=== PATIENT | female | born 1955 | race Caucasian/White ===

== ENCOUNTER 2020-04-08 03:49 | Emergency (ER) | payer BC ==
[~2020-04-08] VITALS: Ht 149.9 cm; Wt 68.9 kg
[2020-04-08 03:56] VITALS: Ht 149.9 cm; Wt 68.9 kg
[2020-04-08 05:39] VITALS: BP 134/70
== END 2020-04-08 05:39 | disposition home or self-care (01) ==
LOC: ED 03:49
DX: G54.9 Nerve root and plexus disorder, unspecified (principal); E78.00 Pure hypercholesterolemia, unspecified; Z88.0 Allergy status to penicillin; Z88.1 Allergy status to other antibiotic agents; Z91.040 Latex allergy status
CPT/HCPCS: Q0092